=== PATIENT | female | born 1960 | race American Indian/Alaskan Native ===

== ENCOUNTER 2016-12-19 13:38 | Emergency (ER) | payer SELFPAY ==
[~2016-12-19] VITALS: Ht 160 cm; Wt 67.5 kg
[2016-12-19 13:42] VITALS: Ht 160 cm; Wt 67.5 kg
== END 2016-12-19 17:29 | disposition left against medical advice (07) ==
LOC: E/R 13:38
DX: Z53.21 Procedure and treatment not carried out due to patient leaving prior to being seen by health care provider (principal)

== ENCOUNTER 2018-11-23 14:45 | Emergency (ER) | payer OTHER ==
[~2018-11-23] VITALS: Wt 89.0 kg
[~2018-11-23 14:45] MED LIST: CEPH-443 PO; PHEN-538 PO; SULF1TAB31 PO
[2018-11-23 14:47] VITALS: BP 123/60; PULSE 78; RESP 18
--- NOTE | 2018-11-23 14:50 | EN ---
Date/Time of Note Date/Time of Note DATE: 11/23/18 TIME: 14:49 ER Progress Note Patient with persistent dysuria despite treatment with Keflex. Urinalysis ordered. GABRIELA LARIOS PA-C Nov 23, 2018 14:50
[2018-11-23] MEDS ORDERED: CEFTRIAXONE 1 GM INJ IM ONE (17:30)
[2018-11-23] MEDS ORDERED: LIDOCAINE 1% (MDV) 20 ML INJ SC ONE (17:30)
--- NOTE | 2018-11-23 21:52 | ERD ---
ER Documentation Chief Complaint Chief Complaint dysuria x 1 week, treated with keflex w/ improvement HPI 58-year-old female with no significant past medical history presents emergency department complaining of intermittent dysuria for the past 3 weeks. Symptoms have worsened. She took Keflex for a reportedly 7 days which she has already finished several days ago. She continues to have dysuria. She denies any fevers, chills, back pain, or other symptoms at this time. ROS All systems reviewed and are negative except as per history of present illness. Medications Home Meds Active Scripts Phenazopyridine Hcl* (Pyridium*) 200 Mg Tab, 200 MG PO TID PRN for URINARY PAIN, #6 TAB Prov:DANNY JAMES PA-C 11/23/18 Sulfamethoxazole/Trimethoprim* (Bactrim Ds* Tablet) 1 Each Tablet, 1 TAB PO BID, #20 TAB Prov:DANNY JAMES PA-C 11/23/18 Cephalexin* (Keflex*) 500 Mg Capsule, 500 MG PO TID for 7 Days, CAP Prov:GABRIELA LARIOS PA-C 11/15/18 Allergies Allergies: Coded Allergies: No Known Allergy (Unverified , 11/15/18) PMhx/Soc Medical and Surgical Hx: pt denies Surgical Hx Hx Miscellaneous Medical Probl: Yes (Hyperlipidemia) Hx Alcohol Use: No Hx Substance Use: No Hx Tobacco Use: No Smoking Status: Never smoker FmHx Family History: No diabetes Physical Exam Vitals Vital Signs Date Temp Pulse Resp B/P (MAP) Pulse Ox O2 O2 Flow FiO2 Time Delivery Rate 11/23/18 99.6 78 18 123/60 99 14:47 (81) Physical Exam Const: No acute distress Head: Atraumatic Eyes: Normal Conjunctiva ENT: Normal External Ears, Nose and Mouth. Neck: Full range of motion. No meningismus. Resp: Clear to auscultation bilaterally Cardio: Regular rate and rhythm, no murmurs Abd: Soft, non tender, non distended. Normal bowel sounds. No rebound tenderness or guarding. No McBurney's point tenderness. Skin: No petechiae or rashes Back: No midline or flank tenderness Ext: No cyanosis, or edema Neur: Awake and alert Psych: Normal Mood and Affect Results 24 hrs Laboratory Tests Test 11/23/18 15:32 Urine Color YELLOW Urine Clarity CLOUDY Urine pH 6.0 Urine Specific [place] 1.003 Urine Ketones NEGATIVE mg/dL Urine Nitrite NEGATIVE mg/dL Urine Bilirubin NEGATIVE mg/dL Urine Urobilinogen NEGATIVE mg/dL Urine Leukocyte Esterase 3+ Felisha/ul Urine Microscopic RBC 6 /HPF Urine Microscopic WBC > 182 /HPF Urine Bacteria FEW /HPF Urine Hemoglobin 1+ mg/dL Urine Glucose NEGATIVE mg/dL Urine Total Protein NEGATIVE mg/dl Current Medications Medications Dose Sig/Lisseth Start Time Status Last (Trade) Ordered Route PRN Stop Time Admin Dose Reason Admin Ceftriaxone 1 gm ONCE ONCE 11/23/18 DC 11/23/18 Sodium IM 17:30 11/23/18 17:31 (Rocephin) 17:31 Lidocaine 20 ml ONCE ONCE 11/23/18 DC 11/23/18 (Xylocaine SC 17:30 11/23/18 17:31 1% (Mdv) 20 17:31 ml) Procedures/MDM 58-year-old female presents with signs and symptoms most consistent with uncomplicated urinary tract infection. Urine culture from previous visit was reviewed and there was sensitivity to Bactrim. Bactrim will be prescribed along with Pyridium. No evidence to suggest significant pyelonephritis, ascending infection, sepsis, acute surgical abdomen, or other emergent process. Patient will be discharged home in stable condition. She was advised to have close primary care follow-up and return here immediately for any new, worsening, or concerning symptoms. Shared my medical decision making with the patient and she understands and agrees with the plan. Departure Diagnosis: Primary Impression: UTI (urinary tract infection) Condition: Fair Patient Instructions: Understanding Urinary Tract Infections (UTIs) Additional Instructions: Call your primary care doctor TOMORROW for an appointment during the next 1-2 days.See the doctor sooner or return here if your condition worsens before your appointment time. DANNY JAMES PA-C Nov 23, 2018 21:52
== END 2018-11-23 17:40 | disposition home or self-care (01) ==
LOC: FTE 14:45
DX: N39.0 Urinary tract infection, site not specified (principal)
CPT/HCPCS: 81001; 96372; J0696; Z7502; Z7610